=== PATIENT | male | born 1990 ===

== ENCOUNTER 2024-01-05 19:14 | Emergency (ER) | payer OTHER ==
[2024-01-05] MEDS: Ketorolac 30 MG/ML SDV IM ONE (19:55)
== END 2024-01-05 20:10 | disposition home or self-care (01) ==
LOC: LB.ED 19:14
DX: S46.211A Strain of muscle, fascia and tendon of other parts of biceps, right arm, initial encounter (principal); X50.0XXA Overexertion from strenuous movement or load, initial encounter; Y93.89 Activity, other specified
CPT/HCPCS: 96372; 99283-25; J1885